=== PATIENT | female | born 1960 | race Caucasian/White ===

== ENCOUNTER 2017-10-16 19:35 | Emergency (ER) | payer BC ==
[2017-10-16] MEDS ORDERED: predniSONE 20 MG Tab PO ONE (19:50)
[2017-10-16] MEDS ORDERED: Albuterol/Ipratropium 3.0-0.5 MG/3 ML Neb Soln NEB ONE (19:50)
--- NOTE | 2017-10-16 19:57 | EDM.PDOC ---
ED HPI GENERAL MEDICAL PROBLEM - General Chief Complaint: Respiratory Problem Stated Complaint: TROUBLE BREATHING Time Seen by Provider: 10/16/17 19:45 Source of Information: Reports: Patient History Limitations: Reports: No Limitations - History of Present Illness INITIAL COMMENTS - FREE TEXT/NARRATIVE: Kay comes into [facility] ED with a 48 hr hx of SOB with exertion, productive cough of clear sputa, and wheezing. She has a known hx of COPD, and continues to smoke. There is no chest pain, SOB at rest, home 02 use, fever, chills or sweats. She reports no known cardiac disease. She does have a PMH of ETOHism, sober for 7 years, but is currently being investigated for liver enlargement and elevated LFTs including a recent bx. She took an Albuterol MDI before coming to the ED. Her 02 satd 96% on RA. - Related Data Allergies Allergy/AdvReac Type Severity Reaction Status Date / Time No Known Allergies Allergy Verified 10/16/17 19:48 Home Meds: Home Meds Albuterol [Ventolin HFA] 1 puff .XX ASDIRECTED PRN 10/16/17 [History] Albuterol/Ipratropium [DuoNeb 3.0-0.5 MG/3 ML] 3 ml .XX Q6HR PRN #30 neb [Rx] Citalopram Hydrobromide [Celexa] 40 mg PO DAILY 10/16/17 [History] Fluticasone/Salmeterol [Advair 250-50] 1 puff INH BID 10/16/17 [History] predniSONE [Prednisone] 40 mg PO DAILY #7 tablet 10/16/17 [Rx] Past Medical History Respiratory History: Reports: COPD Gastrointestinal History: Reports: Other (See Below) (liver disease) ED ROS GENERAL - Review of Systems Review Of Systems: See Below Constitutional: Reports: Malaise, Fatigue HEENT: Reports: No Symptoms Respiratory: Reports: Shortness of Breath, Wheezing, Cough, Sputum Cardiovascular: Reports: Dyspnea on Exertion Endocrine: Reports: No Symptoms GI/Abdominal: Reports: Other (liver enlargement, elevated LFTs) : Reports: No Symptoms Musculoskeletal: Reports: No Symptoms Skin: Reports: No Symptoms Neurological: Reports: No Symptoms ED EXAM, GENERAL - Physical Exam Exam: See Below Exam Limited By: No Limitations General Appearance: Alert, WD/WN, Mild Distress Eye Exam: Bilateral Eye: EOMI, Normal Inspection, PERRL Ears: Normal External Exam Nose: Normal Inspection Throat/Mouth: Normal Inspection, Normal Oropharynx Head: Atraumatic, Normocephalic Neck: Normal Inspection, Supple, Non-Tender, Full Range of Motion Respiratory/Chest: Decreased Breath Sounds, Crackles, Wheezing, Accessory Muscle Use, Retractions, Prolonged Expiration Cardiovascular: Normal Peripheral Pulses, Regular Rate, Rhythm, No Murmur GI/Abdominal: Normal Bowel Sounds, Soft, No Distention, Hepatomegaly (Female) Exam: Deferred Rectal (Female) Exam: Deferred Back Exam: Normal Inspection Extremities: Normal Inspection Neurological: Alert, Oriented, CN II-XII Intact, No Motor/Sensory Deficits Psychiatric: Normal Affect, Anxious Skin Exam: Warm, Dry, Intact Lymphatic: No Adenopathy Course - Vital Signs Text/Narrative:: Following assessment at the [facility] ED, I administered a DuoNeb and Prednisone 40 mg po pending results of screening labwork: the CBC was baseline; CMP noted elevated LFTs, with normal TP, albumin, and bilirubin. She has a return appt with GI specialist November 03. Her breathing is clinically improved. Last Recorded V/S: Last Vital Signs Temp 36.6 C 10/16/17 19:40 Pulse 94 10/16/17 19:40 Resp 18 10/16/17 19:40 BP 132/75 10/16/17 19:40 Pulse Ox 96 10/16/17 19:40 - Orders/Labs/Meds Orders: Active Orders 24 hr Category Date Time Status RT Aerosol Therapy [RC] ASDIRECTED Care 10/16/17 19:50 Active Labs: Laboratory Tests 10/16/17 10/16/17 Range/Units 20:05 20:05 WBC 6.2 (4.5-12.0) X10-3/uL RBC 4.97 (3.23-5.20) x10(6)uL Hgb 16.0 H (11.5-15.5) g/dL Hct 46.1 (30.0-51.3) % MCV 92.8 (80-96) fL MCH 32.2 (27.7-33.6) pg MCHC 34.7 (32.2-35.4) g/dL RDW 11.9 (11.5-15.5) % Plt Count 232 (125-369) X10(3)uL MPV 7.8 (7.4-10.4) fL Neut % (Auto) 49.1 (46-82) % Lymph % (Auto) 38.7 H (13-37) % [place] % (Auto) 7.8 (4-12) % Eos % (Auto) 4 (1.0-5.0) % Baso % (Auto) 1 (0-2) % Neut # (Auto) 3.1 (1.6-8.3) # Lymph # (Auto) 2.4 (0.6-5.0) # [place] # (Auto) 0.5 (0.0-1.3) # Eos # (Auto) 0.2 (0.0-0.8) # Baso # (Auto) 0.0 (0.0-0.2) # Sodium 137 (135-145) mmol/L Potassium 4.5 (3.5-5.3) mmol/L Chloride 101 (100-110) mmol/L Carbon Dioxide 29 (21-32) mmol/L BUN 5 L (7-18) mg/dL Creatinine 0.6 (0.55-1.02) mg/dL Est Cr Clr Drug Dosing TNP Estimated GFR (MDRD) > 60 (>60) BUN/Creatinine Ratio 8.3 L (9-20) Glucose 92 (80-116) mg/dL Calcium 9.2 (8.6-10.2) mg/dL Total Bilirubin 0.4 (0.1-1.3) mg/dL AST 262 H* (5-25) IU/L ALT 477 H* (12-36) U/L Alkaline Phosphatase 137 H (56-112) IU/L Total Protein 7.8 (6.0-8.0) g/dL Albumin 3.6 (3.5-5.2) g/dL Globulin 4.2 g/dL Albumin/Globulin Ratio 0.9 Meds: Medications Discontinued Medications Generic Name Dose Route Start Last Admin Trade Name Freq PRN Reason Stop Dose Admin Albuterol/Ipratropium 3 ml 10/16/17 19:50 10/16/17 19:59 Duoneb 3.0-0.5 Mg/3 Ml NEB 10/16/17 19:51 3 ml ONETIME ONE Administration Prednisone 40 mg 10/16/17 19:50 10/16/17 19:57 Prednisone PO 10/16/17 19:51 40 mg ONETIME ONE Administration Departure - Departure Time of Disposition: 21:02 Disposition: Home, Self-Care 01 Condition: Fair Clinical Impression: COPD exacerbation, Liver disease, chronic - Discharge Information *PRESCRIPTION DRUG MONITORING PROGRAM REVIEWED*: Not Applicable *COPY OF PRESCRIPTION DRUG MONITORING REPORT IN PATIENT BHARATI: Not Applicable Prescriptions: Albuterol/Ipratropium [DuoNeb 3.0-0.5 MG/3 ML] 3 ml .XX Q6HR PRN #30 neb PRN Reason: Wheezing predniSONE [Prednisone] 40 mg PO DAILY #7 tablet Referrals: Drea Urban NP [Primary Care Provider] - Forms: ED Department Discharge - Problem List & Annotations (1) COPD exacerbation SNOMED Code(s): 216767656 Code(s): J44.1 - CHRONIC OBSTRUCTIVE PULMONARY DISEASE W (ACUTE) EXACERBATION Status: Acute Current Visit: Yes Annotation/Comment:: Kay was dispensed Prednisone 40 mg qd x 1 week, and DuoNeb q 6hrs prn, and will continue with MDIs as directed. She will beginning Chantix soon for tobacco abuse. (2) Liver disease, chronic SNOMED Code(s): 181550434 Code(s): K76.9 - LIVER DISEASE, UNSPECIFIED Status: Acute Current Visit: Yes Annotation/Comment:: Follow up with PCP. - Problem List Review Problem List Initiated/Reviewed/Updated: Yes - My Orders Last 24 Hours: My Active Orders 10/16/17 19:50 RT Aerosol Therapy [RC] ASDIRECTED - Assessment/Plan Last 24 Hours: My Active Orders 10/16/17 19:50 RT Aerosol Therapy [RC] ASDIRECTED Plan: Follow up with PCP as needed.
== END 2017-10-16 21:10 | disposition home or self-care (01) ==
LOC: FB.ED 19:35
DX: J44.1 Chronic obstructive pulmonary disease with (acute) exacerbation (principal); K76.9 Liver disease, unspecified; F17.210 Nicotine dependence, cigarettes, uncomplicated
CPT/HCPCS: 36415; 80053; 85025; 94640; 99284; A9270; J7620-GY